=== PATIENT | male | born 1975 | race Caucasian/White ===

== ENCOUNTER 2024-08-23 11:58 | Outpatient (AMB) | payer OTHER, SELFPAY ==
--- NOTE | 2024-08-23 12:01 | HO.NEPHOV ---
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 Dalal in consultation for management of his hypertension. He is known to have hypertension for long time and had been on antihypertensive medications which he has been compliant with. He had a 24 hour ambulatory blood pressure monitor done in the past predating his current medication regimen. He has gained some weight. He is not very rigid with his salt intake. He has obstructive sleep apnea and is on CPAP which he uses religiously. He has been on irbesartan-hydrochlorothiazide 150/12.5 mg daily. He is not a smoker. He has normal renal functions. He has no history of proteinuria, LVH, retinopathy, history of CVA, CAD, ROSALVA or PAD. During his recent annual physical exam, his blood pressure was high and his PCP suggested to take Avapro/HCTZ to 300/25 mg daily which he has not started yet. In the past when he was taking antihypertensive medications, his blood pressure was dropping too much and he was having foggy head and tiredness at that time. He did not have any specific complaints during this office visit and was feeling well. [facility] Medical History (Updated 08/23/24 @ 14:41 by Hesham Landis MD) AMILCAR (obstructive sleep apnea) Lipoma of back Impaired fasting glucose Hypertension Hypercholesteremia GERD (gastroesophageal reflux disease) Surgical History History of esophagogastroduodenoscopy (EGD) H/O colonoscopy Family History Mother Diabetes mellitus, type II Hypertension Father Prostatic hypertrophy Maternal Grandfather Diabetes mellitus, type II Hypertension Social History (Updated 08/23/24 @ 12:05 by Ruchi Burrell MA) Alcohol intake: current Patient Tobacco Use Status: Never used Tobacco Review of Systems Const All systems reviewed & are unremarkable except as noted in HPI and below Physical Exam Vital Signs: Last Vital Signs Pulse 79 08/23/24 12:02 BP 160/102 H 08/23/24 12:02 Pulse Ox 98 08/23/24 12:02 Oxygen Delivery Method Room Air 08/23/24 12:02 BMI result Body Mass Index 34.4 Const General: comfortable and no acute distress Orientation/consciousness: patient oriented x3 HEENT Head: Yes normocephalic Mouth: Normal oral and palatal mucosa present Eyes EOM: EOMs intact bilaterally Neck Neck: Yes supple Resp Auscultation: clear to auscultation bilaterally Cardio Jugular venous distension: no JVD Rate: regular rate GI Palpation (GI): Soft to palpation Auscultation: normal bowel sounds General: Yes no CVA tenderness Back/Spine/Pelvis Back: no CVA tenderness Skin General skin exam: no rashes or lesions noted Neuro General: patient oriented x3 and moves all extremities Extrem General: Yes no pedal edema Results Reviewed Nephrology Results: No Data to Display Assessment & Plan Assessment & Plan (1) Hypertension: Code(s): I10 - Essential (primary) hypertension Category: Medical Qualifiers: Hypertension type: primary hypertension Qualified Code(s): I10 - Essential (primary) hypertension Plan Samy has hypertension for long time and has been on Avapro/HCTZ 150/12.5 mg daily which I asked him to continue. He needs to lose weight and cut back salt in the diet. He is not known to have any proteinuria, retinopathy, LVH, CAD, CVA, carotid stenosis, PAD or ROSALVA. I have ordered a 24 hour ambulatory blood pressure monitor. He is on statins. I would optimize his medication regimen based on evolving data. He should continue his CPAP. I did not make any medication changes today. He is going to be seen in the office in follow-up in 2 weeks for continued care. Answered all questions. Orders: Orders AMB 24 HR B/P Monitor PLACEMENT Today I10 - Essential (primary) hypertension Coding Level of Care Code New Pt Level 4 (45350) Diagnoses Primary hypertension I10 Hypertension type: primary hypertension
[2024-08-23 12:02] VITALS: BP 160/102; PULSE 79; O2SAT 98; BMI 34.4
== END 2024-08-23 12:28 | disposition home or self-care (01) ==
PROVIDERS: PCP Internal Medicine; Referring Provider Internal Medicine; Visit Provider Internal Medicine Nephrology
DX: I10 Essential (primary) hypertension (principal)
CPT/HCPCS: 99204

== ENCOUNTER → 2024-08-23 11:58 | Outpatient (BNVA) | payer OTHER, SELFPAY | PROVIDERS: PCP Internal Medicine; Referring Provider Internal Medicine; Visit Provider Internal Medicine Nephrology ==

== ENCOUNTER → 2024-09-05 13:14 | Outpatient (BNVA) | payer OTHER, SELFPAY | PROVIDERS: PCP Internal Medicine; Visit Provider Internal Medicine Nephrology ==

== ENCOUNTER 2024-09-06 13:12 | Outpatient (AMB) | payer OTHER, SELFPAY ==
--- NOTE | 2024-09-06 13:39 | HO.NEPHOV_ITS ---
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 Dalal was seen in follow up for management of his hypertension. He is known to have hypertension for long time and had been on antihypertensive medications which he has been compliant with. He had a 24 hour ambulatory blood pressure monitor after last office visit which showed 143/97 overall average, 147/100 day time average and 131/84 night time average. He has gained some weight. He is not very rigid with his salt intake. He has obstructive sleep apnea and is on CPAP which he uses religiously. He is not a smoker. He has normal renal functions. He has no history of proteinuria, LVH, retinopathy, history of CVA, CAD, ROSALVA or PAD. During his recent annual physical exam, his blood pressure was high and his PCP suggested to take Avapro/HCTZ to 300/25 mg daily which he has not started yet. In the past when he was taking antihypertensive medications, his blood pressure was dropping too much and he was having foggy head and tiredness at that time. He did not have any specific complaints during this office visit and was feeling well [facility] Medical History (Updated 08/23/24 @ 14:41 by Hesham Landis MD) AMILCAR (obstructive sleep apnea) Lipoma of back Impaired fasting glucose Hypertension Hypercholesteremia GERD (gastroesophageal reflux disease) Surgical History History of esophagogastroduodenoscopy (EGD) H/O colonoscopy Family History Mother Diabetes mellitus, type II Hypertension Father Prostatic hypertrophy Maternal Grandfather Diabetes mellitus, type II Hypertension Social History Alcohol intake: current Patient Tobacco Use Status: Never used Tobacco Review of Systems Const All systems reviewed & are unremarkable except as noted in HPI and below Physical Exam Vital Signs: Last Vital Signs Pulse 88 09/06/24 13:44 BP 132/90 H 09/06/24 13:44 Pulse Ox 93 09/06/24 13:44 Oxygen Delivery Method Room Air 09/06/24 13:44 BMI result Body Mass Index 34.5 Const General: comfortable and no acute distress Orientation/consciousness: patient oriented x3 HEENT Head: Yes normocephalic Mouth: Normal oral and palatal mucosa present Eyes EOM: EOMs intact bilaterally Neck Neck: Yes supple Resp Auscultation: clear to auscultation bilaterally Cardio Jugular venous distension: no JVD Rate: regular rate GI Palpation (GI): Soft to palpation Auscultation: normal bowel sounds General: Yes no CVA tenderness Back/Spine/Pelvis Back: no CVA tenderness Skin General skin exam: no rashes or lesions noted Neuro General: patient oriented x3 and moves all extremities Extrem General: Yes no pedal edema Results Reviewed Nephrology Results: No Data to Display Assessment & Plan Assessment & Plan (1) Hypertension: Code(s): I10 - Essential (primary) hypertension Category: Medical Qualifiers: Hypertension type: primary hypertension Qualified Code(s): I10 - Essential (primary) hypertension Plan Samy has hypertension for long time . He had been on Avapro/HCTZ 150/12.5 mg daily. He needs to lose weight and cut back salt in the diet. He is not known to have any proteinuria, retinopathy, LVH, CAD, CVA, carotid stenosis, PAD or ROSALVA. He is on statins. He had a 24 hour ambulatory blood pressure monitor after last office visit which showed 143/97 overall average, 147/100 day time average and 131/84 night time average. I increased his Avapro to 150 mg bid. I w ould optimize his medication regimen based on evolving data. He should continue his CPAP. I did not make any other medication changes today. He needs his CPAP checked . He is going to be seen in the office in follow-up in a month for continued care. Answered all questions Medications: New irbesartan (Avapro) 300 mg PO DAILY 90 tabs 3RF Coding Level of Care Code Est Pt Level 4 (68122) Diagnoses Primary hypertension I10 Hypertension type: primary hypertension
[2024-09-06 13:44] VITALS: BP 132/90; PULSE 88; O2SAT 93; BMI 34.5
== END 2024-09-06 14:25 | disposition home or self-care (01) ==
LOC: HO.HKAS 13:13
PROVIDERS: PCP Internal Medicine; Visit Provider Internal Medicine Nephrology
DX: I10 Essential (primary) hypertension (principal)
CPT/HCPCS: 99214

== ENCOUNTER → 2024-09-06 13:12 | Outpatient (BNVA) | payer OTHER, SELFPAY | PROVIDERS: PCP Internal Medicine; Visit Provider Internal Medicine Nephrology ==

== ENCOUNTER 2024-10-11 14:32 | Outpatient (AMB) | payer OTHER, SELFPAY ==
--- NOTE | 2024-10-11 14:43 | HO.NEPHOV_ITS ---
Vital Signs 10/11/24 14:45 Height 5 ft 4 in Weight 197 lb 4 oz BMI 33.9 BP 156/102 H Blood Pressure Location Lt brachial Position Sitting Pulse 90 Pulse Source Pulse Oximeter Pulse Oximetry (%) 94 Oxygen Delivery Method Room Air Intake Visit Reasons: 1m follow up/ Conf Maths Tutor Required: No Accompanied by: Self / Same As Patient Allergies atenolol Allergy (Verified 10/11/24 14:43) Unknown doxycycline Allergy (Verified 10/11/24 14:43) Unknown lisinopril Allergy (Verified 10/11/24 14:43) Dizziness metoprolol Allergy (Verified 10/11/24 14:43) Unknown Penicillins Allergy (Verified 10/11/24 14:43) Rash valsartan [From Diovan] Allergy (Verified 10/11/24 14:43) Unknown amlodipine Adverse Reaction (Verified 10/11/24 14:43) Fatigued HPI Comments Details: Mr. Dalal was seen in follow up for management of his hypertension. He has lost some weight with diet and exercise. He has obstructive sleep apnea and is on CPAP which he uses religiously. He is not a smoker. He has normal renal functions. He has no history of proteinuria, LVH, retinopathy, history of CVA, CAD, ROSALVA or PAD. He had increased Avapro to 300 mg daily with improvement in blood pressure. He has been having prostatic symptoms and incomplete bladder emptying but otherwise feeling well [facility] Medical History (Updated 10/11/24 @ 20:51 by Hesham Landis MD) AMILCAR (obstructive sleep apnea) Lipoma of back Impaired fasting glucose Hypertension Hypercholesteremia GERD (gastroesophageal reflux disease) Surgical History History of esophagogastroduodenoscopy (EGD) H/O colonoscopy Family History Mother Diabetes mellitus, type II Hypertension Father Prostatic hypertrophy Maternal Grandfather Diabetes mellitus, type II Hypertension Social History Alcohol intake: current Patient Tobacco Use Status: Never used Tobacco Review of Systems Const All systems reviewed & are unremarkable except as noted in HPI and below Physical Exam Vital Signs: Last Vital Signs Pulse 90 10/11/24 14:45 BP 156/102 H 10/11/24 14:45 Pulse Ox 94 10/11/24 14:45 Oxygen Delivery Method Room Air 10/11/24 14:45 BMI result Body Mass Index 33.9 Const General: comfortable and no acute distress Orientation/consciousness: patient oriented x3 HEENT Head: Yes normocephalic Mouth: Normal oral and palatal mucosa present Eyes EOM: EOMs intact bilaterally Neck Neck: Yes supple Resp Auscultation: clear to auscultation bilaterally Cardio Jugular venous distension: no JVD Rate: regular rate GI Palpation (GI): Soft to palpation Auscultation: normal bowel sounds General: Yes no CVA tenderness Back/Spine/Pelvis Back: no CVA tenderness Skin General skin exam: no rashes or lesions noted Neuro General: patient oriented x3 and moves all extremities Extrem General: Yes no pedal edema Results Reviewed Nephrology Results: No Data to Display Assessment & Plan Assessment & Plan (1) Hypertension: Code(s): I10 - Essential (primary) hypertension Category: Medical Qualifiers: Hypertension type: primary hypertension Qualified Code(s): I10 - Essential (primary) hypertension (2) Benign prostatic hyperplasia with lower urinary tract symptoms: Code(s): N40.1 - Benign prostatic hyperplasia with lower urinary tract symptoms Category: Medical Qualifiers: Lower urinary tract symptom detail: incomplete bladder emptying Qualified Code(s): N40.1 - Benign prostatic hyperplasia with lower urinary tract symptoms; R39.14 - Feeling of incomplete bladder emptying Plan Samy has hypertension for long time .He has lost some weight and has cut back salt in the diet. He is not known to have any proteinuria, retinopathy, LVH, CAD, CVA, carotid stenosis, PAD or ROSALVA. He can continue Avapro 300 mg daily. I would optimize his medication regimen based on evolving data. He should continue his CPAP. I started him on Tamsulosin 0.4 mg daily. I plan to refer him to Urology if his symptoms persists. I did not make any other medication changes today. He is going to be seen in the office in follow-up in a month for continued care. Answered all questions Orders: Orders Blood Urea Nitrogen 2 Months I10 - Essential (primary) hypertension, N40.1 - Benign prostatic hyperplasia with lower urinary tract symptoms PSA,Total (Free>4and<10) 2 Months I10 - Essential (primary) hypertension, N40.1 - Benign prostatic hyperplasia with lower urinary tract symptoms Electrolytes 2 Months I10 - Essential (primary) hypertension, N40.1 - Benign prostatic hyperplasia with lower urinary tract symptoms Creatinine 2 Months I10 - Essential (primary) hypertension, N40.1 - Benign prostatic hyperplasia with lower urinary tract symptoms Medications: New tamsulosin 0.4 mg PO BEDTIME 30 caps 4RF Coding Level of Care Code Est Pt Level 4 (28241) Diagnoses Primary hypertension I10 Hypertension type: primary hypertension Benign prostatic hyperplasia with incomplete bladder emptying N40.1; R39.14 Lower urinary tract symptom detail: incomplete bladder emptying
[2024-10-11 14:45] VITALS: BP 156/102; PULSE 90; O2SAT 94; BMI 33.9
== END 2024-10-11 15:11 | disposition home or self-care (01) ==
PROVIDERS: PCP Internal Medicine; Visit Provider Internal Medicine Nephrology
DX: I10 Essential (primary) hypertension (principal); N40.1 Benign prostatic hyperplasia with lower urinary tract symptoms; R39.14 Feeling of incomplete bladder emptying
CPT/HCPCS: 99214

== ENCOUNTER 2024-10-11 14:32 | Outpatient (REF) | payer OTHER, SELFPAY | END 2024-10-11 14:33 | disposition home or self-care (01) | LOC: HO.LAB 14:32 | PROVIDERS: PCP Internal Medicine; Visit Provider Internal Medicine Nephrology | DX: I10 Essential (primary) hypertension (principal) ==

== ENCOUNTER 2024-12-26 15:00 | Outpatient (REF) | payer OTHER, SELFPAY ==
[2024-12-26 17:32] LABS: Anion Gap 12 (12-20); Blood Urea Nitrogen 12 mg/dL (9-16); Carbon Dioxide 28 mmol/L (22-29); Chloride 104 mmol/L (96-108); Estimated Glomerular Filt Rate > 60; Sodium 140 mmol/L (135-145)
[2024-12-26 17:54] LABS: PSA,Total (Free>4and<10) 1.26 ng/mL (0.00-4.00)
== END 2024-12-26 15:01 | disposition home or self-care (01) ==
LOC: HO.HMGCLDS 15:00
PROVIDERS: PCP Internal Medicine; Visit Provider Internal Medicine Nephrology
DX: I10 Essential (primary) hypertension (principal); N40.1 Benign prostatic hyperplasia with lower urinary tract symptoms; N13.8 Other obstructive and reflux uropathy; Z12.5 Encounter for screening for malignant neoplasm of prostate
CPT/HCPCS: 36415; 80051; 82565; 84153; 84520

== ENCOUNTER 2024-12-27 15:12 | Outpatient (AMB) | payer OTHER, SELFPAY ==
[2024-12-27 15:16] VITALS: BP 128/80; PULSE 68; O2SAT 97; BMI 32.3
--- NOTE | 2024-12-27 15:16 | HO.NEPHOV ---
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 Dalal was seen in follow up for management of his hypertension. He has lost some weight with diet and exercise. He has obstructive sleep apnea and is on CPAP which he uses religiously. He is not a smoker. He has normal renal functions. He has no history of proteinuria, LVH, retinopathy, history of CVA, CAD, ROSALVA or PAD. He had increased Avapro to 300 mg daily with improvement in blood pressure. He has been having prostatic symptoms and incomplete bladder emptying but otherwise feeling well [facility] Medical History (Updated 10/11/24 @ 20:51 by Hesham Landis MD) AMILCAR (obstructive sleep apnea) Lipoma of back Impaired fasting glucose Hypertension Hypercholesteremia GERD (gastroesophageal reflux disease) Surgical History History of esophagogastroduodenoscopy (EGD) H/O colonoscopy Family History Mother Diabetes mellitus, type II Hypertension Father Prostatic hypertrophy Maternal Grandfather Diabetes mellitus, type II Hypertension Social History Alcohol intake: current Patient Tobacco Use Status: Never used Tobacco Review of Systems Const All systems reviewed & are unremarkable except as noted in HPI and below Physical Exam Vital Signs: Last Vital Signs Pulse 68 12/27/24 15:16 BP 150/100 H 12/27/24 15:16 Pulse Ox 97 12/27/24 15:16 Oxygen Delivery Method Room Air 12/27/24 15:16 BMI result Body Mass Index 32.3 Const General: comfortable and no acute distress Orientation/consciousness: patient oriented x3 HEENT Head: Yes normocephalic Mouth: Normal oral and palatal mucosa present Eyes EOM: EOMs intact bilaterally Neck Neck: Yes supple Resp Auscultation: clear to auscultation bilaterally Cardio Jugular venous distension: no JVD Rate: regular rate GI Palpation (GI): Soft to palpation Auscultation: normal bowel sounds General: Yes no CVA tenderness Back/Spine/Pelvis Back: no CVA tenderness Skin General skin exam: no rashes or lesions noted Neuro General: patient oriented x3 and moves all extremities Extrem General: Yes no pedal edema Results Reviewed Nephrology Results: Sodium 140 mmol/L (135-145) 12/26/24 Potassium 4.0 mmol/L (3.3-5.1) 12/26/24 Chloride 104 mmol/L (96-108) 12/26/24 Carbon Dioxide 28 mmol/L (22-29) 12/26/24 BUN 12 mg/dL (9-16) 12/26/24 Creatinine 1.07 mg/dL (0.5-1.4) 12/26/24 Assessment & Plan Assessment & Plan (1) Hypertension: Code(s): I10 - Essential (primary) hypertension Category: Medical Qualifiers: Hypertension type: primary hypertension Qualified Code(s): I10 - Essential (primary) hypertension Plan Samy has hypertension for long time .He has lost some weight and has cut back salt in the diet. He is not known to have any proteinuria, retinopathy, LVH, CAD, CVA, carotid stenosis, PAD or ROSALVA. He can continue Avapro 300 mg daily. I would optimize his medication regimen based on evolving data. He should continue his CPAP. He should continue Tamsulosin 0.4 mg daily. I plan to refer him to Urology if his symptoms persists. I did not make any other medication changes today. He is going to be seen in the office in follow-up in 6 months for continued care. Answered all questions Medications: Refilled tamsulosin 0.4 mg PO BEDTIME 90 caps 4RF Coding Level of Care Code Est Pt Level 4 (48412) Diagnoses Primary hypertension I10 Hypertension type: primary hypertension
== END 2024-12-27 15:35 | disposition home or self-care (01) ==
PROVIDERS: PCP Internal Medicine; Visit Provider Internal Medicine Nephrology
DX: I10 Essential (primary) hypertension (principal)
CPT/HCPCS: 99214

== ENCOUNTER 2025-08-10 13:45 | Outpatient (AMB) | payer OTHER, SELFPAY ==
--- OUTSIDE RECORDS SUMMARY | 2025-08-08 09:00 | XMS_ITS ---
Author Organization [facility] Address [address] [place] [address] Care Team Providers Care Fugitive Investigator Name Role Phone Zaynab Rodríguez MD Primary Care Provider Unavailjuaquin e JiYadirae Unavailable [phone] Allergies Allergen (clinical drug ingredient) Drug/Non Drug Allergy documented on EMR Reaction Allergy Type Onset Date Status Penicillin Unknown Drug Allergy Active REASON FOR VISIT Heel pain Medications Medication SIG (Take, Route, Frequency, Duration) Notes Start Date End Date Status Medrol 4 MG as directed Orally d aily; Duration: 6 days 02/14/2025 Not-Taking Irbesartan Active Physical Therapy . . . 2-3x/week; Durat ion: 3-4 weeks 02/14/2025 Active Omeprazole Active Atorvastatin Calcium Active Social History Tobacco Use: Social History Observation Description Date Details (start date - stop date) Never Smoker NA - NA Tobacco use other than smoking: Question Answer Notes Are you an other tobacco user? No Tobacco Control (Standard) Question Answer Notes Tobacco use: Nonsmoker Additional Findings: Tobacco non-user Current no nsmoker AUDIT-C (Standard) Question Answer Notes Did you have a drink contain ing alcohol in the past year? Yes How often did you have a dri nk containing alcohol in the past year? Monthly or less (1 point) How many drinks did you have on a typical day when you were drinking in the past year? 1 or 2 drinks (0 point) How often did you have six o r more drinks on one occasion in the past year? Never (0 point) Points 1 Interpretation Negative Vital Signs Height 5ft 4in in 08/08/2025 Weight 185 lbs 08/08/2025 BMI 31.75 kg/m2 08/08/2025 Blood pressure systolic 122 mm Hg 08/08/20 25 Blood pressure diastolic 68 mm Hg 025 Procedures Procedure Date Ordered Date Performed Result Body Sit e ,[id number] TENDON SHEATH/LIGAMENT 08/08/2025 N/A Encounters Encounter Location Date [facility] [address] [place] [address] 08/08/2025 Alice Workman Pain in left foot M79.672 ; Plantar fasciitis of left foot M72.2 ; Calcaneal spur, left foot M77.32 ; Interstitial myositis of left foot M60.172 and Bursitis of left foot M77.52 Assessments Encounter Date Diagnosis (ICD Code) Assessment Notes Treatment Notes Treatment Clinical Notes Section Notes 08/08/2025 Pain in left foot (ICD-10 - M79.672) 08/08/2025 Plantar fasciitis of left foot (ICD-10 - M72.2) Patient Educated with: RICE THERAPY.pdf (RICE THERAPY.pdf) Patient Educated with: INJECTIONTHERA PY.pdf (INJECTIONTHER APY.pdf) 08/08/2025 Calcaneal spur, left foot (ICD-10 - M77.32) 08/08/2025 Interstitial myositis of left foot (ICD-10 - M60.172) 08/08/2025 Bursitis of left foot (ICD-10 - M77.52) Plan Of Treatment Treatment Notes Assessment Notes Plantar fasciitis of left foot Patient E ducated with: RICE THERAPY.pdf (RICE THERAPY.pdf) Patient Educated with: INJECTIONTHERAPY.pdf (INJECTIONTHERAPY.pdf) Pending Test Test Name Order Date ,[id number] TENDON SHEATH/LIGAMENT 0 08/08/2025 Next Appt Details Follow Up: 6 Weeks, Reason: Provider Name:Alice Workman , 10/17/2025 01:00:00 PM, [address] [facility], [place], [address], Procedure Notes * Category Sub-Category Detail Notes Injection Tendon Sheath or Fascia , J 0702 Injection - Plantar Fascia w/ mixture of Celestone Soluspan 3mg and 1cc 1 percent Xylocaine Plain anes. utilizing aseptic technique. The patient tolerated the procedure well. A dry sterile dressing was applied. Post injection instructions were dispensed, verbally discussed, and confirmed understood by the patient. SHORT TERM GOAL - I explained that a steroid and local anesthetic injection is to relieve pain and inflammation in order to HOME ECONOMICS EXPERT GOAL - properly improve function and restore the patient to their prior pain-free activity. I explained the possible complications including but not limited to signs/symptoms of steroid flare, change/deviation in toe position, infection, bruising, atrophy, discoloration of skin, and that additional injections may be necessary in order to achieve the short and terminal gauger supervisor established goals. Patient relates post-procedural pain assessment improved at ( 0-1) out of 10, LEFT foot (2L) Progress Notes * MARILEE SamyDOB:1974 (50 yo M)Acc No.[id number]:08/08/2025 Progress Notes Patient: Samy VALDIVIA Provider: Nacho Workman DPM :1975 A ge:50 Y S ex:Male Date:08/08/2025 Address:[address] [place] [address] Pcp:Zaynab Rodríguez MD Subjective: * Chief Complaints: * H eel pain * HPI: H eel pain: Nature: a светлана, burning, tenderness, throbbing. Location: P roximal plantar aspect of Heel, LEFT. Duration: , a year or more. Course: i mproved, at approximately 40 percent. Aggravated: s tanding, walking, walking first thing in the morning/after rest, standing at work and playing in a band. Treatments: R est/alter normal daily activity, [place] sock, rolling ball in arch, new inserts from fleet feet, topical medications, stretching exercises, TENS unit, Medrol ASHER (did feel good for a period of time) and Physical therapy, AFO-nightsplint, corticosteriod injection (1L). Misc: P atient states previous conservative therapy has not provided acceptable relief. Despite previous treatments/efforts, patient continues to relate substantial pain and significant functional disability during activity. * ROS: G eneral/Constitutional: Nausea d enies. V omiting d enies. H gilda Thirst d enies. L oss appetite d enies. C hills d enies. F atigue d enies.?Fever d enies. N ight Sweats d enies. U nexplained weight loss d enies. U nexplained weight gain d enies. H EENTM: Dentures d enies. D izziness d enies. G lasses/contacts d enies. R etinopathy d enies. B lurred/double vision d enies. T MJ?denies. D ischarge/drainage d enies. I mplants d enies. S ore throat d enies. D ental implants d enies. H madeleine of hearing d enies. D ifficulty chewing/swallowing/speaking d enies. N ose bleeds d enies. S ore mouth d enies. ? R espiratory: On Oxygen d enies. P neumonia/pleurisy d enies.?Bronchitis d enies. E mphysema d enies. C oughing d enies. C ough blood?denies. S hortness of breath d enies. W heezing d enies. C ardiovascular: Pacemaker d enies. M STAGE BUILDER d enies. W PW d enies. C HF d enies. H eart attack d enies. S eptal defect d enies. R apid beat d enies. C hest pain d enies. A trial Fib. d enies. M urmur/Palpitations d enies. G astrointestinal: Hemorrhoids d enies. S tomach/Abdominal pain d enies. D ark blood stool d enies. I rritable bowel d enies. C onstipation d enies. D iarrhea d enies. H ematology: Swelling d enies. C lots d enies. V aricose Veins d enies. B ruising d enies. B leeding problem d enies. G enitourinary: Blood urine d enies. F requent/Painfu/urination/bladder control d enies. K idney stones d enies. I nfection (UTI) d enies. N ephropathy d enies. s ex trans dis (STD) d enies. P rostate d enies. M usculoskeletal: Hammertoes d enies. B unions d enies. B ack Pain d enies. M uscle Cramps/ Resting d enies. M uscle cramps / walking d enies.?Generalized aches and pains a dmits. W eakness d enies. I nteg.: Vanegas d enies. S cars d enies. C orns/calluses?denies. I ngrown nails d enies. P ainful nails d enies. O pen Sores d enies. R ashes d enies. N eurologic: Difficulty sleeping d enies. B rain disorder d enies. N umbness d enies. B alance trouble d enies. C onfusion d enies. F ainting/blackouts d enies. T ingling d enies. T remors d enies. * Medical History: * Surgical History: D enies Past Surgical History * Hospitalization/Major Diagno stic Procedure: D enies Past Hospitalization * Family History: M other: alive, diagnosed with Unspecified essential hypertension. F ather: alive. * Social History: T obacco Use: T obacco use other than smoking A re you an other tobacco user? N o Tobacco Control (Standard) T obacco use: N onsmoker A dditional Findings: Tobacco non-user C urrent nonsmoker D rugs/Alcohol: D rugs H ave you used drugs other than those for medical reasons in the past 12 months? N o M iscellaneous: C affeine: yes, 1-2 cups per day. Children: yes. Exercise: yes, walking,woking,MMA cardio. Marital status: Single. 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 D rug/Alcohol: A EDITH-C (Standard) D id you have a drink containing alcohol in the past year? Y es H ow often did you have a drink containing alcohol in the past year? M onthly or less (1 point) H ow many drinks did you have on a typical day when you were drinking in the past year? 1 or 2 drinks (0 point) H ow often did you have six or more drinks on one occasion in the past year? N ever (0 point) P oints 1 I nterpretation N egative * Medications: T akingOmeprazole Atorvastatin Calcium Irbesartan Physical Therapy . . . . 2- 3x/week Taking Omeprazole Taking Atorvastatin Calcium Taking Irbesartan Taking Physical Therapy . . . . 2-3x/week Not-Taking/PRNMedrol 4 MG Tablet Therapy Pack as directed Orally daily Medication List reviewed and reconciled with the patientNot- Taking/PRN Medrol 4 MG Tablet Therapy Pack as directed Orally daily Medication List reviewed and reconciled with the patient * Allergies: P enicillinyes[Allergies Verified] Objective: * Vitals: H t: 5ft 4in, Wt:185, BMI:31.75, Shoe size: 9, BP:122/68mm Hg, Ht-cm: 162.56 cm, Wt-k.92 kg. * Examination: G eneral Examination: GENERAL APPEARANCE: Barbara prieto a pleasant, alert, well nourished, well-developed, well hydrated individual, who demonstrates proper attention to hygiene/body habitus, and is in no acute distress, Pt serves as own historian for office visit today. ORIENTED: p erson, place, and time. N eurological: SENSORY: N eurological exam reveals intact sensorium, pain sensation normal, vibration sensation intact, pinprick sensation is normal in the lower extremities, Pt denies, anesthesia, burning, paresthesia, tingling, B/L. O rthopedic: MUSCLE STRENGTH: 5 /5 all groups in a symmetrical fashion, B/L. GAIT ABNORMALITY: a ntalgic. FOOT MORPHOLOGY: Pes Planus structure, Decreased Ankle joint dorsiflexion ROM, knee extended. DIGITAL DEFORMITIES: D igital contracture, PIPJ, 2-5 B/L, incompl-reducible with WB, or to push-up test, no over, nor underlapping. FOOTWEAR EVALUATION: , good condition. ? H eel Pain: INSPECTION: C ONT, Pain on Palpation to Plantar Fascia med. and central bands, intrinsic musc., infra-calcaneal bursa, and med calc tubercle , LEFT foot, No pain: posterior/superior heel, achilles bursa/tendon, sinus tarsi, peroneals, or with lateral heel compression; no limited STJ ROM, calor, or ecchymosis,LEFT foot, Approximately 40 percent LESS.? V ascular: DP PULSES (B): 2 /4, B/L. PT PULSES (B): 2 /4, B/L. Assessment: * Assessment: 1. P ain in left foot - M79.672 2 . P lantar fasciitis of left foot - M72.2 (Primary) S pecify :Acute problem, Complicated w/ Multiple Tx Options(4),Dx New problem, Prognosis Uncertain (4) Resistant to previous conservative treatment 3 . C alcaneal spur, left foot - M77.32 4 . I nterstitial myositis of left foot - M60.172 5 . B ursitis of left foot - M77.52 ? Plan: * Treatment: * Procedures: I njection: Tendon Sheath or Fascia 2 0550, J0702 Injection - Plantar Fascia w/ mixture of Celestone Soluspan 3mg and 1cc 1 percent Xylocaine Plain anes. utilizing aseptic technique. The patient tolerated the procedure well. A dry sterile dressing was applied. Post injection instructions were dispensed, verbally discussed, and confirmed understood by the patient. SHORT TERM GOAL - I explained that a steroid and local anesthetic injection is to relieve pain and inflammation in order to HOME ECONOMICS EXPERT GOAL - properly improve function and restore the patient to their prior pain-free activity. I explained the possible complications including but not limited to signs/symptoms of steroid flare, change/deviation in toe position, infection, bruising, atrophy, discoloration of skin, and that additional injections may be necessary in order to achieve the short and assisted established goals. Patient relates post-procedural pain assessment improved at ( 0-1) out of 10, LEFT foot (2L). * Procedure Codes: 2 0550 INJ TENDON SHEATH/LIGAMENT, Modifiers: XS J0702 INJ BETAMETHSN ACTAT&SOD PHOSPH-3MG * Follow Up: 6 Weeks * Images: * Sign off status: Completed true * Provider: Nacho Workman DPM Date: 0 08/08/2025 Generated for Simin saldana/Ten/Saud on: 03:23 PM EDT History and Physical Notes * HPI (History of Present Illness) Category Sub-Category Detail Notes Category Not es Heel pain Duration: , a year or more Nature: aching, burning, ten derness, throbbing Location: Proximal plantar asp ect of Heel, LEFT Aggravated: standing, walking, w alking first thing in the morning/after rest, standing at work and playing in a band Course: improved, at approxi mately 40 percent Treatments: Rest/alter normal da joey activity, [place] sock, rolling ball in arch, new inserts from fleet feet, topical medications, stretching exercises, TENS unit, Medrol ASHER (did feel good for a period of time) and Physical therapy, AFO-nightsplint, corticosteriod injection (1L) Misc: Patient states previ ous conservative therapy has not provided acceptable relief. Despite previous treatments/efforts, patient continues to relate substantial pain and significant functional disability during activity Examination Category Sub-Category Detail Notes Category Not es Neurological SENSORY: Neurological exa m reveals intact sensorium, pain sensation normal, vibration sensation intact, pinprick sensation is normal in the lower extremities, Pt denies, anesthesia, burning, paresthesia, tingling, B/L TINEL'S COMPRESSION: Orthopedic GAIT ABNORMALITY: antalgic FOOT MORPHOLOGY: Pes Planus structure , Decreased Ankle joint dorsiflexion ROM, knee extended FOOTWEAR EVALUATION: , good condition DIGITAL DEFORMITIES: Digital contracture , PIPJ, 2-5 B/L, incompl-reducible with WB, or to push-up test, no over, nor underlapping MUSCLE STRENGTH: 5/5 all groups in a symmetrical fashion, B/L General Examination GENERAL APPEARANCE: Reveals a pleasant, alert, well nourished, well-developed, well hydrated individual, who demonstrates proper attention to hygiene/body habitus, and is in no acute distress, Pt serves as own historian for office visit today ORIENTED: person, place, and t junior Vascular DP PULSES (B): 2/4, B/L PT PULSES (B): 2/4, B/L Heel Pain INSPECTION: CONT, Pain on Pa lpation to Plantar Fascia med. and central bands, intrinsic musc., infra-calcaneal bursa, and med calc tubercle , LEFT foot, No pain: posterior/superior heel, achilles bursa/tendon, sinus tarsi, peroneals, or with lateral heel compression; no limited STJ ROM, calor, or ecchymosis,LEFT foot, Approximately 40 percent LESS
--- NOTE | 2025-08-10 13:47 | HO.NEPHOV_ITS ---
Vital Signs 08/10/25 13:48 Height 5 ft 4 in Weight 199 lb BMI 34.2 BP 140/90 H Blood Pressure Location Lt brachial Position Sitting Pulse 82 Pulse Source Pulse Oximeter Pulse Oximetry (%) 96 Oxygen Delivery Method Room Air Intake Visit Reasons: 6mon [id number] Required: No Accompanied by: Self / Same As Patient Allergies atenolol Allergy (Verified 08/10/25 13:48) Unknown doxycycline Allergy (Verified 08/10/25 13:48) Unknown lisinopril Allergy (Verified 08/10/25 13:48) Dizziness metoprolol Allergy (Verified 08/10/25 13:48) Unknown Penicillins Allergy (Verified 08/10/25 13:48) Rash valsartan (From PanAtlantavan) Allergy (Verified 08/10/25 13:48) Unknown amlodipine Adverse Reaction (Verified 08/10/25 13:48) Fatigued HPI Comments Details: Mr. Dalal was seen in follow up for management of his hypertension. He has lost some weight with diet and exercise. He has obstructive sleep apnea and is on CPAP which he uses religiously. He is not a smoker. He has normal renal functions. He has no history of proteinuria, LVH, retinopathy, history of CVA, CAD, ROSALVA or PAD. He had increased Avapro to 300 mg daily with improvement in blood pressure. He has been having prostatic symptoms and incomplete bladder emptying which has been helped by Flomax. [facility] Medical History (Updated 10/11/24 @ 20:51 by Hesham Landis MD) AMILCAR (obstructive sleep apnea) Lipoma of back Impaired fasting glucose Hypertension Hypercholesteremia GERD (gastroesophageal reflux disease) Surgical History History of esophagogastroduodenoscopy (EGD) H/O colonoscopy Family History Mother Diabetes mellitus, type II Hypertension Father Prostatic hypertrophy Maternal Grandfather Diabetes mellitus, type II Hypertension Social History Alcohol intake: current Patient Tobacco Use Status: Never used Tobacco Review of Systems Const All systems reviewed & are unremarkable except as noted in HPI and below Physical Exam Vital Signs: Last Vital Signs Pulse 82 08/10/25 13:48 BP 160/100 H 1002/25 13:48 Pulse Ox 96 08/10/25 13:48 Oxygen Delivery Method Room Air 08/10/25 13:48 BMI result Body Mass Index 34.2 Const General: comfortable and no acute distress Orientation/consciousness: patient oriented x3 HEENT Head: Yes normocephalic Mouth: Normal oral and palatal mucosa present Eyes EOM: EOMs intact bilaterally Neck Neck: Yes supple Resp Auscultation: clear to auscultation bilaterally Cardio Jugular venous distension: no JVD Rate: regular rate GI Palpation (GI): Soft to palpation Auscultation: normal bowel sounds General: Yes no CVA tenderness Back/Spine/Pelvis Back: no CVA tenderness Skin General skin exam: no rashes or lesions noted Neuro General: patient oriented x3 and moves all extremities Extrem General: Yes no pedal edema Assessment & Plan Assessment & Plan (1) Hypertension: Code(s): I10 - Essential (primary) hypertension Category: Medical Qualifiers: Hypertension type: primary hypertension Qualified Code(s): I10 - Essential (primary) hypertension Plan Samy has hypertension for long time .He has cut back salt in the diet. He is not known to have any proteinuria, retinopathy, LVH, CAD, CVA, carotid stenosis, PAD or ROSALVA. He can continue Avapro 300 mg daily. I started him on Amlodipine 2.5 mg daily. I would optimize his medication regimen based on evolving data. He should continue his CPAP. He should continue Tamsulosin 0.4 mg daily. I plan to refer him to Urology if his symptoms persists. I did not make any other medication changes today. He is going to be seen in the office in follow-up in 6 months for continued care. Answered all questions Medications: New amlodipine 2.5 mg PO DAILY 90 tabs 4RF Coding Level of Care Code Est Pt Level 4 (66309) Diagnoses Primary hypertension I10 Hypertension type: primary hypertension
[2025-08-10 13:48] VITALS: BP 140/90; PULSE 82; O2SAT 96; BMI 34.2
--- OUTSIDE RECORDS SUMMARY | 2025-08-10 15:25 | XMS_ITS | Patient Health Record ---
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 Name Role Phone Zaynab Rodríguez MD Primary Care Provider Rick erickson Alice Workman Unavailable [phone] Allergies Allergen (clinical drug ingredient) Drug/Non Drug Allergy documented on EMR Reaction Allergy Type Onset Date Status Penicillin Unknown Drug Allergy Active Results Component Value Reference Range Notes X ray : Foot, left 3V Reviewed date:02/14/2025 07:56:02 PM Interpretation:See Examination above Performing Lab: Notes/Report: See Examination above Reason For Referral No Information Medications Medication SIG (Take, Route, Frequency, Duration) Notes Start Date End Date Status Medrol 4 MG as directed Orally d aily; Duration: 6 days 02/14/2025 Not-Taking Irbesartan Active Physical Therapy . . . 2-3x/week; Durat ion: 3-4 weeks 02/14/2025 Active Omeprazole Active Atorvastatin Calcium Active Immunizations Vaccine Route Administration Date Status Comme nts Influenza Unknown 05/05/2025 Refused Social History Tobacco Use: Social History Observation [...] Never (0 point) Points 1 Interpretation Negative Problems Problem Type SNOMED Code ICD Code Onset Dates Problem Status W/U Status Risk Notes Problem Plantar fasciitis of left foot (915730245380828 ) Plantar fasciitis of left foot (M72.2) Active confirmed Problem Interstitial myositis (75892218) Interstitial myositis of left foot (M60.172) Active confirmed Vital Signs Blood pressure diastolic 68 mm Hg 08/08/2025 Height 5ft 4in in 08/08/2025 Blood pressure systolic 122 mm Hg 08/08/2025 Weight 185 lbs 08/08/2025 BMI 31.75 kg/m2 08/08/2025 Procedures Procedure Date Ordered Date Performed Result Body Sit e ,Y6018-[id number] TENDON SHEATH/LIGAMENT 05/05/2025 N/A ,[id number] TENDON SHEATH/LIGAMENT 08/08/2025 N/A Encounters Encounter Location Date Provider Diagnosis [address] [place] [address] 02/14/2025 Alice Black Pain in left foot M79.672 ; Plantar fasciitis of left foot M72.2 ; Calcaneal spur, left foot M77.32 ; Interstitial myositis of left foot M60.172 and Bursitis of left foot M77.[address] [place] [address] 03/17/2025 Alice Black Pain in left foot M79.672 ; Plantar fasciitis of left foot M72.2 ; Calcaneal spur, left foot M77.32 ; Interstitial myositis of left foot M60.172 and Bursitis of left foot M77.[address] [place] [address] 05/05/2025 Alice Black Pain in left foot M79.672 ; Plantar fasciitis of left foot M72.2 ; Calcaneal spur, left foot M77.32 ; Interstitial myositis of left foot M60.172 and Bursitis of left foot M77.[address] [place] [address] 08/08/2025 Alice Black Pain in left foot M79.672 ; Plantar fasciitis of left foot M72.2 ; Calcaneal spur, left foot M77.32 ; Interstitial myositis of left foot M60.172 and Bursitis of left foot M77.52 [facility] [address] [place] [address] 01/24/2025 Alice Black Assessments Encounter Date Diagnosis (ICD Code) Assessment Notes Treatment Notes Treatment Clinical Notes Section Notes 02/14/2025 Pain in left foot (ICD-10 - M79.672) 02/14/2025 Plantar fasciitis of left foot (ICD-10 - M72.2) 03/17/2025 Pain in left foot (ICD-10 - M79.672) 03/17/2025 Plantar fasciitis of left foot (ICD-10 - M72.2) 05/05/2025 Pain in left foot (ICD-10 - M79.672) 08/08/2025 Pain in left foot (ICD-10 - M79.672) 05/05/2025 Plantar fasciitis of left foot (ICD-10 - M72.2) Patient Educated with: RICE THERAPY.pdf (RICE THERAPY.pdf) Patient Educated with: INJECTIONTHERA PY.pdf (INJECTIONTHER APY.pdf) 03/17/2025 Calcaneal spur, left foot (ICD-10 - M77.32) 02/14/2025 Calcaneal spur, left foot (ICD-10 - M77.32) 08/08/2025 Plantar fasciitis of left foot (ICD-10 - M72.2) Patient Educated with: RICE THERAPY.pdf (RICE THERAPY.pdf) Patient Educated with: INJECTIONTHERA PY.pdf (INJECTIONTHER APY.pdf) 08/08/2025 Calcaneal spur, left foot (ICD-10 - M77.32) 05/05/2025 Calcaneal spur, left foot (ICD-10 - M77.32) 02/14/2025 Interstitial myositis of left foot (ICD-10 - M60.172) 03/17/2025 Interstitial myositis of left foot (ICD-10 - M60.172) 02/14/2025 Bursitis of left foot (ICD-10 - M77.52) 03/17/2025 Bursitis of left foot (ICD-10 - M77.52) 05/05/2025 Interstitial myositis of left foot (ICD-10 - M60.172) 08/08/2025 Interstitial myositis of left foot (ICD-10 - M60.172) 08/08/2025 Bursitis of left foot (ICD-10 - M77.52) 05/05/2025 Bursitis of left foot (ICD-10 - M77.52) Plan Of Treatment Pending Test Test Name Order Date ,[id number] TENDON SHEATH/LIGAMENT 0 05/05/2025,[id number] TENDON SHEATH/LIGAMENT 0 08/08/2025 Next Appt Details Provider Name:Alice Workman , 10/17/2025 01:00:00 PM, [address] [facility], [place], [address], Insurance Providers Payer Name Payer Address Payer Phone Subscriber Number Group Number Insured Name Patient Relationship to Insured Coverage Start Date Coverage End Date [employer] [address] [place] [address] [id number] Samy Dalal Self - patient is the insured Medical (General) History Medical History History ICD Code Anxiety High Blood Pressure Reflux ( GERD)
== END 2025-08-10 14:14 | disposition home or self-care (01) ==
LOC: HO.HKAS 13:45
PROVIDERS: PCP Internal Medicine; Visit Provider Internal Medicine Nephrology
DX: I10 Essential (primary) hypertension (principal)
CPT/HCPCS: 99214